=== PATIENT | female | born 1960 | race Caucasian/White ===

== ENCOUNTER → 2017-12-15 | Outpatient (CLI) | payer BC ==
[2017-12-15 14:03] LABS: BASOPHILS # (AUTO) 0.1 (0.0-0.1); EOSINOPHILS # (AUTO) 0.3 (0.0-0.4); EOSINOPHILS % 2.7 % (0.0-6.0); HEMATOCRIT 39.4 % (34.2-44.1); HEMOGLOBIN 13.1 g/dL (12.0-16.0); LYMPHOCYTES # (AUTO) 2.1 (1.0-3.2); LYMPHOCYTES % 20.9 % (18.0-39.1); MEAN CORPUSCULAR HGB CONC 33.2 g/dL (31-35); MEAN CORPUSCULAR VOLUME 99.2 fL (81-99); MONOCYTES # (AUTO) 0.8 (0.2-0.8); NEUTROPHILS # (AUTO) 6.8 (2.1-6.9); NEUTROPHILS % 67.2 % (38.7-80.0); PLATELET COUNT 331 x10e3/uL (140-360); RED BLOOD COUNT 3.97 x10e6/uL (3.6-5.1)
[2017-12-15 14:31] LABS: ALANINE AMINOTRANSFERASE 33 IU/L (0-55); ALBUMIN 2.8 g/dL (3.5-5.0); ALBUMIN/GLOBULIN RATIO 0.7 (0.8-2.0); ALKALINE PHOSPHATASE 112 IU/L (40-150); ANION GAP 13.7 mmol/L (8-16); BLOOD UREA NITROGEN 20 mg/dL (7-26); BUN/CREATININE RATIO 25 (6-25); CALCIUM 9.5 mg/dL (8.4-10.2); CARBON DIOXIDE 26 mmol/L (22-29); CHLORIDE 100 mmol/L (98-107); EST GLOMERULAR FILTRATION RATE > 60 ML/MIN (60-); GLUCOSE 140 mg/dL (74-118); POTASSIUM 3.7 mmol/L (3.5-5.1); SODIUM 136 mmol/L (136-145)
[2017-12-15 14:39] LABS: ERYTHROCYTE SEDIMENTATION RATE 28 mm/hr (0-20)
== END ==
LOC: WCC 15:23
PROVIDERS: ATTEND Podiatrist Foot & Ankle Surgery
DX: E11.621 Type 2 diabetes mellitus with foot ulcer (principal); L97.421 Non-pressure chronic ulcer of left heel and midfoot limited to breakdown of skin; L97.411 Non-pressure chronic ulcer of right heel and midfoot limited to breakdown of skin; I10 Essential (primary) hypertension; E78.5 Hyperlipidemia, unspecified; J45.909 Unspecified asthma, uncomplicated
CPT/HCPCS: 36415; 80053; 83036; 84134; 85025; 85651; 86140; 87071; 87075; 87186; 87205

== ENCOUNTER → 2017-12-20 | Outpatient (CLI) | payer BC | LOC: WCC 09:00 | PROVIDERS: ATTEND Podiatrist Foot & Ankle Surgery | DX: E11.621 Type 2 diabetes mellitus with foot ulcer (principal); L97.421 Non-pressure chronic ulcer of left heel and midfoot limited to breakdown of skin; L97.411 Non-pressure chronic ulcer of right heel and midfoot limited to breakdown of skin; I10 Essential (primary) hypertension; B95.8 Unspecified staphylococcus as the cause of diseases classified elsewhere; D50.8 Other iron deficiency anemias; E03.9 Hypothyroidism, unspecified; E78.5 Hyperlipidemia, unspecified; G43.101 Migraine with aura, not intractable, with status migrainosus; G56.00 Carpal tunnel syndrome, unspecified upper limb; G90.09 Other idiopathic peripheral autonomic neuropathy; J45.909 Unspecified asthma, uncomplicated; K21.9 Gastro-esophageal reflux disease without esophagitis; K46.9 Unspecified abdominal hernia without obstruction or gangrene; Z01.810 Encounter for preprocedural cardiovascular examination; Z01.811 Encounter for preprocedural respiratory examination ==

== ENCOUNTER → 2017-12-21 | Outpatient (CLI) | payer BC ==
--- NOTE | 2017-12-21 15:56 | Diagnostic Imaging Report ---
EXAMINATION: CHEST 2 VIEWS INDICATION: Preop clearance for hyperbaric treatment COMPARISON: None FINDINGS: PA and lateral views TUBES and LINES: 2 thoracic stimulator leads terminate in the mid thoracic spine. LUNGS: Lungs are well inflated. Azygos lobe and fissure are present. There is no evidence of pneumonia or pulmonary edema. PLEURA: No pleural effusion or pneumothorax. HEART AND MEDIASTINUM: The cardiomediastinal silhouette is unremarkable.. BONES AND SOFT TISSUES: No focal osseous lesions. Soft tissues are unremarkable. UPPER ABDOMEN: No free air under the diaphragm. Surgical clips in the upper abdomen are suggestive of cholecystectomy. IMPRESSION: No acute thoracic abnormality. Signed by: Dr. Angie Neal MD on 12/21/2017 3:53 PM
== END ==
LOC: RAD 14:19
PROVIDERS: ATTEND Family Medicine
DX: Z01.810 Encounter for preprocedural cardiovascular examination (principal); Z01.811 Encounter for preprocedural respiratory examination
CPT/HCPCS: 71046; 93005

== ENCOUNTER → 2018-01-04 | Outpatient (CLI) | payer BC | LOC: EDSEX → WCC 12:00 | PROVIDERS: ATTEND Podiatrist Foot & Ankle Surgery | DX: E10.621 Type 1 diabetes mellitus with foot ulcer (principal); E11.621 Type 2 diabetes mellitus with foot ulcer; L97.421 Non-pressure chronic ulcer of left heel and midfoot limited to breakdown of skin; L97.411 Non-pressure chronic ulcer of right heel and midfoot limited to breakdown of skin; B95.8 Unspecified staphylococcus as the cause of diseases classified elsewhere; D50.8 Other iron deficiency anemias; E03.9 Hypothyroidism, unspecified; E78.5 Hyperlipidemia, unspecified; G43.101 Migraine with aura, not intractable, with status migrainosus ==

== ENCOUNTER → 2018-01-10 | Outpatient (CLI) | payer BC | LOC: WCC 12:35 | PROVIDERS: ATTEND Podiatrist Foot & Ankle Surgery | DX: E10.621 Type 1 diabetes mellitus with foot ulcer (principal); E11.621 Type 2 diabetes mellitus with foot ulcer; L97.421 Non-pressure chronic ulcer of left heel and midfoot limited to breakdown of skin; L97.411 Non-pressure chronic ulcer of right heel and midfoot limited to breakdown of skin; I10 Essential (primary) hypertension; B95.8 Unspecified staphylococcus as the cause of diseases classified elsewhere; D50.8 Other iron deficiency anemias; E03.9 Hypothyroidism, unspecified; E78.5 Hyperlipidemia, unspecified; G43.101 Migraine with aura, not intractable, with status migrainosus; G56.00 Carpal tunnel syndrome, unspecified upper limb; G90.09 Other idiopathic peripheral autonomic neuropathy; J45.909 Unspecified asthma, uncomplicated; K21.9 Gastro-esophageal reflux disease without esophagitis; K46.9 Unspecified abdominal hernia without obstruction or gangrene; Z01.810 Encounter for preprocedural cardiovascular examination; Z01.811 Encounter for preprocedural respiratory examination ==

== ENCOUNTER → 2018-01-19 | Outpatient (CLI) | payer BC | LOC: EDSEX → WCC 12:15 | PROVIDERS: ATTEND Podiatrist Foot & Ankle Surgery | DX: E11.621 Type 2 diabetes mellitus with foot ulcer (principal); E10.621 Type 1 diabetes mellitus with foot ulcer; L97.421 Non-pressure chronic ulcer of left heel and midfoot limited to breakdown of skin; L97.411 Non-pressure chronic ulcer of right heel and midfoot limited to breakdown of skin; B95.8 Unspecified staphylococcus as the cause of diseases classified elsewhere; I10 Essential (primary) hypertension; G90.09 Other idiopathic peripheral autonomic neuropathy; D50.8 Other iron deficiency anemias; E03.9 Hypothyroidism, unspecified; E78.5 Hyperlipidemia, unspecified; G43.101 Migraine with aura, not intractable, with status migrainosus; G56.00 Carpal tunnel syndrome, unspecified upper limb; J45.909 Unspecified asthma, uncomplicated; K21.9 Gastro-esophageal reflux disease without esophagitis; K46.9 Unspecified abdominal hernia without obstruction or gangrene; Z01.810 Encounter for preprocedural cardiovascular examination; Z01.811 Encounter for preprocedural respiratory examination ==

== ENCOUNTER → 2018-01-31 | Outpatient (CLI) | payer BC ==
[~2018-01-31] MED LIST: LIDOCAINE VISC 2% SOLN 15 ML UDC ONE
== END ==
LOC: WCC 13:27
PROVIDERS: ATTEND Podiatrist Foot & Ankle Surgery
DX: E11.621 Type 2 diabetes mellitus with foot ulcer (principal); L97.421 Non-pressure chronic ulcer of left heel and midfoot limited to breakdown of skin; L97.411 Non-pressure chronic ulcer of right heel and midfoot limited to breakdown of skin; G90.09 Other idiopathic peripheral autonomic neuropathy; B95.8 Unspecified staphylococcus as the cause of diseases classified elsewhere; D50.8 Other iron deficiency anemias; E03.9 Hypothyroidism, unspecified; E78.5 Hyperlipidemia, unspecified; G43.101 Migraine with aura, not intractable, with status migrainosus; G56.00 Carpal tunnel syndrome, unspecified upper limb; I10 Essential (primary) hypertension; J45.909 Unspecified asthma, uncomplicated; K21.9 Gastro-esophageal reflux disease without esophagitis; K46.9 Unspecified abdominal hernia without obstruction or gangrene; Z01.810 Encounter for preprocedural cardiovascular examination; Z01.811 Encounter for preprocedural respiratory examination

== ENCOUNTER → 2018-02-07 | Outpatient (CLI) | payer BC | LOC: WCC 12:43 | PROVIDERS: ATTEND Podiatrist Foot & Ankle Surgery | DX: E11.621 Type 2 diabetes mellitus with foot ulcer (principal); L97.421 Non-pressure chronic ulcer of left heel and midfoot limited to breakdown of skin; L97.411 Non-pressure chronic ulcer of right heel and midfoot limited to breakdown of skin; G90.09 Other idiopathic peripheral autonomic neuropathy; B95.8 Unspecified staphylococcus as the cause of diseases classified elsewhere; E78.5 Hyperlipidemia, unspecified; D50.8 Other iron deficiency anemias; E03.9 Hypothyroidism, unspecified; G43.101 Migraine with aura, not intractable, with status migrainosus; G56.00 Carpal tunnel syndrome, unspecified upper limb ==

== ENCOUNTER → 2018-02-21 | Outpatient (CLI) | payer BC | LOC: WCC 02:00 | PROVIDERS: ATTEND Podiatrist Foot & Ankle Surgery | DX: E11.621 Type 2 diabetes mellitus with foot ulcer (principal); L97.421 Non-pressure chronic ulcer of left heel and midfoot limited to breakdown of skin; L97.411 Non-pressure chronic ulcer of right heel and midfoot limited to breakdown of skin; G90.09 Other idiopathic peripheral autonomic neuropathy; B95.8 Unspecified staphylococcus as the cause of diseases classified elsewhere; I10 Essential (primary) hypertension; D50.8 Other iron deficiency anemias; E03.9 Hypothyroidism, unspecified; E78.5 Hyperlipidemia, unspecified; G43.101 Migraine with aura, not intractable, with status migrainosus; G56.00 Carpal tunnel syndrome, unspecified upper limb; J45.909 Unspecified asthma, uncomplicated; K21.9 Gastro-esophageal reflux disease without esophagitis; K46.9 Unspecified abdominal hernia without obstruction or gangrene; Z01.810 Encounter for preprocedural cardiovascular examination; Z01.811 Encounter for preprocedural respiratory examination ==

== ENCOUNTER → 2018-03-07 | Outpatient (CLI) | payer BC | LOC: WCC 13:28 | PROVIDERS: ATTEND Podiatrist Foot & Ankle Surgery | DX: E11.621 Type 2 diabetes mellitus with foot ulcer (principal); L97.411 Non-pressure chronic ulcer of right heel and midfoot limited to breakdown of skin; B95.8 Unspecified staphylococcus as the cause of diseases classified elsewhere; D50.8 Other iron deficiency anemias; E03.9 Hypothyroidism, unspecified; E78.5 Hyperlipidemia, unspecified; G43.101 Migraine with aura, not intractable, with status migrainosus; G56.00 Carpal tunnel syndrome, unspecified upper limb; G90.09 Other idiopathic peripheral autonomic neuropathy; I10 Essential (primary) hypertension; J45.909 Unspecified asthma, uncomplicated ==

== ENCOUNTER → 2018-03-21 | Outpatient (CLI) | payer BC | LOC: WCC 13:13 | PROVIDERS: ATTEND Podiatrist Foot & Ankle Surgery | DX: E11.621 Type 2 diabetes mellitus with foot ulcer (principal); L97.411 Non-pressure chronic ulcer of right heel and midfoot limited to breakdown of skin; B95.8 Unspecified staphylococcus as the cause of diseases classified elsewhere; I10 Essential (primary) hypertension; G90.09 Other idiopathic peripheral autonomic neuropathy; D50.8 Other iron deficiency anemias; E03.9 Hypothyroidism, unspecified; E78.5 Hyperlipidemia, unspecified; G43.101 Migraine with aura, not intractable, with status migrainosus; G56.00 Carpal tunnel syndrome, unspecified upper limb; J45.909 Unspecified asthma, uncomplicated ==

== ENCOUNTER → 2018-04-25 | Outpatient (CLI) | payer BC | LOC: WCC 10:00 | PROVIDERS: ATTEND Podiatrist Foot & Ankle Surgery | DX: E11.621 Type 2 diabetes mellitus with foot ulcer (principal); L97.411 Non-pressure chronic ulcer of right heel and midfoot limited to breakdown of skin; G90.09 Other idiopathic peripheral autonomic neuropathy; I10 Essential (primary) hypertension; B95.8 Unspecified staphylococcus as the cause of diseases classified elsewhere; D50.8 Other iron deficiency anemias; E03.9 Hypothyroidism, unspecified; E78.5 Hyperlipidemia, unspecified; G43.101 Migraine with aura, not intractable, with status migrainosus; G56.00 Carpal tunnel syndrome, unspecified upper limb; J45.909 Unspecified asthma, uncomplicated ==

== ENCOUNTER → 2018-07-09 | Outpatient (CLI) | payer BC ==
[~2018-07-09] MED LIST changes: -LIDOCAINE VISC 2% SOLN 15 ML UDC ONE; +MUPIROCIN 2% OINT 22 GM TUBE ONE
== END ==
LOC: WCC 14:27
PROVIDERS: ATTEND Podiatrist Foot & Ankle Surgery
DX: E11.621 Type 2 diabetes mellitus with foot ulcer (principal); L97.411 Non-pressure chronic ulcer of right heel and midfoot limited to breakdown of skin; L97.519 Non-pressure chronic ulcer of other part of right foot with unspecified severity; G90.09 Other idiopathic peripheral autonomic neuropathy; I10 Essential (primary) hypertension; D50.8 Other iron deficiency anemias; E03.9 Hypothyroidism, unspecified; E78.5 Hyperlipidemia, unspecified; G43.101 Migraine with aura, not intractable, with status migrainosus; G56.00 Carpal tunnel syndrome, unspecified upper limb

== ENCOUNTER → 2018-08-13 | Outpatient (CLI) | payer BC ==
[~2018-08-13] MED LIST changes: +CADEXOMER IODINE 30 GM TUBE ONE; +LIDOCAINE/PRILOCAINE 2.5-2.5% KIT ONE; -MUPIROCIN 2% OINT 22 GM TUBE ONE
== END ==
LOC: WCC 14:32
PROVIDERS: ATTEND Podiatrist Foot & Ankle Surgery
DX: L60.8 Other nail disorders (principal); E11.621 Type 2 diabetes mellitus with foot ulcer; L89.892 Pressure ulcer of other site, stage 2; L97.519 Non-pressure chronic ulcer of other part of right foot with unspecified severity; I10 Essential (primary) hypertension; D50.8 Other iron deficiency anemias; E03.9 Hypothyroidism, unspecified; E78.5 Hyperlipidemia, unspecified; G43.101 Migraine with aura, not intractable, with status migrainosus; G56.00 Carpal tunnel syndrome, unspecified upper limb; G90.09 Other idiopathic peripheral autonomic neuropathy; J45.909 Unspecified asthma, uncomplicated; K21.9 Gastro-esophageal reflux disease without esophagitis; K46.9 Unspecified abdominal hernia without obstruction or gangrene; Y82.8 Other medical devices associated with adverse incidents; Z01.810 Encounter for preprocedural cardiovascular examination; Z01.811 Encounter for preprocedural respiratory examination

== ENCOUNTER → 2018-08-20 | Outpatient (CLI) | payer BC | LOC: WCC 13:50 | PROVIDERS: ATTEND Podiatrist Foot & Ankle Surgery | DX: E11.621 Type 2 diabetes mellitus with foot ulcer (principal); L89.892 Pressure ulcer of other site, stage 2; L97.519 Non-pressure chronic ulcer of other part of right foot with unspecified severity; L60.8 Other nail disorders; D50.8 Other iron deficiency anemias; E03.9 Hypothyroidism, unspecified; E78.5 Hyperlipidemia, unspecified; G43.101 Migraine with aura, not intractable, with status migrainosus; G56.00 Carpal tunnel syndrome, unspecified upper limb; G90.09 Other idiopathic peripheral autonomic neuropathy; I10 Essential (primary) hypertension; J45.909 Unspecified asthma, uncomplicated; K21.9 Gastro-esophageal reflux disease without esophagitis; K64.9 Unspecified hemorrhoids; Y82.8 Other medical devices associated with adverse incidents; Z01.810 Encounter for preprocedural cardiovascular examination; Z01.811 Encounter for preprocedural respiratory examination ==

== ENCOUNTER → 2018-08-27 | Outpatient (CLI) | payer BC ==
[~2018-08-27] MED LIST changes: -CADEXOMER IODINE 30 GM TUBE ONE
== END ==
LOC: WCC 15:05
PROVIDERS: ATTEND Podiatrist Foot & Ankle Surgery
DX: E11.621 Type 2 diabetes mellitus with foot ulcer (principal); L89.892 Pressure ulcer of other site, stage 2; L60.8 Other nail disorders; L97.519 Non-pressure chronic ulcer of other part of right foot with unspecified severity; G90.09 Other idiopathic peripheral autonomic neuropathy; I10 Essential (primary) hypertension; D50.8 Other iron deficiency anemias; E03.9 Hypothyroidism, unspecified; E78.5 Hyperlipidemia, unspecified; G43.101 Migraine with aura, not intractable, with status migrainosus; G56.00 Carpal tunnel syndrome, unspecified upper limb

== ENCOUNTER → 2018-09-03 | Outpatient (CLI) | payer BC | LOC: WCC 14:41 | PROVIDERS: ATTEND Podiatrist Foot & Ankle Surgery | DX: E11.621 Type 2 diabetes mellitus with foot ulcer (principal); L89.892 Pressure ulcer of other site, stage 2; L60.8 Other nail disorders; L97.519 Non-pressure chronic ulcer of other part of right foot with unspecified severity; G90.09 Other idiopathic peripheral autonomic neuropathy; I10 Essential (primary) hypertension; D50.8 Other iron deficiency anemias; E03.9 Hypothyroidism, unspecified; E78.5 Hyperlipidemia, unspecified; G43.101 Migraine with aura, not intractable, with status migrainosus; G56.00 Carpal tunnel syndrome, unspecified upper limb ==

== ENCOUNTER → 2018-09-10 | Outpatient (CLI) | payer BC | LOC: WCC 15:27 | PROVIDERS: ATTEND Podiatrist Foot & Ankle Surgery | DX: E11.621 Type 2 diabetes mellitus with foot ulcer (principal); L89.892 Pressure ulcer of other site, stage 2; L97.519 Non-pressure chronic ulcer of other part of right foot with unspecified severity; L60.8 Other nail disorders; I10 Essential (primary) hypertension; D50.8 Other iron deficiency anemias; E03.9 Hypothyroidism, unspecified; E78.5 Hyperlipidemia, unspecified; G43.101 Migraine with aura, not intractable, with status migrainosus; G56.00 Carpal tunnel syndrome, unspecified upper limb; G90.09 Other idiopathic peripheral autonomic neuropathy ==

== ENCOUNTER → 2018-09-24 | Outpatient (CLI) | payer BC | LOC: WCC 15:06 | PROVIDERS: ATTEND Podiatrist Foot & Ankle Surgery | DX: E11.621 Type 2 diabetes mellitus with foot ulcer (principal); L89.892 Pressure ulcer of other site, stage 2; Y82.8 Other medical devices associated with adverse incidents; L97.519 Non-pressure chronic ulcer of other part of right foot with unspecified severity; L60.8 Other nail disorders; G90.09 Other idiopathic peripheral autonomic neuropathy; I10 Essential (primary) hypertension; J45.909 Unspecified asthma, uncomplicated; E03.9 Hypothyroidism, unspecified; E78.5 Hyperlipidemia, unspecified; D50.8 Other iron deficiency anemias; G43.101 Migraine with aura, not intractable, with status migrainosus; K21.9 Gastro-esophageal reflux disease without esophagitis; K46.9 Unspecified abdominal hernia without obstruction or gangrene; G56.00 Carpal tunnel syndrome, unspecified upper limb; Z01.810 Encounter for preprocedural cardiovascular examination; Z01.811 Encounter for preprocedural respiratory examination ==

== ENCOUNTER → 2018-10-01 | Outpatient (CLI) | payer BC | LOC: WCC 13:22 | PROVIDERS: ATTEND Podiatrist Foot & Ankle Surgery | DX: L89.892 Pressure ulcer of other site, stage 2 (principal); E11.621 Type 2 diabetes mellitus with foot ulcer; Y82.8 Other medical devices associated with adverse incidents; L97.519 Non-pressure chronic ulcer of other part of right foot with unspecified severity; S90.822A Blister (nonthermal), left foot, initial encounter; G90.09 Other idiopathic peripheral autonomic neuropathy; I10 Essential (primary) hypertension; D50.8 Other iron deficiency anemias; E03.9 Hypothyroidism, unspecified; E78.5 Hyperlipidemia, unspecified; G43.101 Migraine with aura, not intractable, with status migrainosus; G56.00 Carpal tunnel syndrome, unspecified upper limb; J45.909 Unspecified asthma, uncomplicated; K21.9 Gastro-esophageal reflux disease without esophagitis; K46.9 Unspecified abdominal hernia without obstruction or gangrene; Z01.810 Encounter for preprocedural cardiovascular examination; Z01.811 Encounter for preprocedural respiratory examination | CPT/HCPCS: 87071; 87075; 87205 ==

== ENCOUNTER → 2018-10-08 | Outpatient (CLI) | payer BC | LOC: WCC 16:08 | PROVIDERS: ATTEND Podiatrist Foot & Ankle Surgery | DX: E11.621 Type 2 diabetes mellitus with foot ulcer (principal); L97.519 Non-pressure chronic ulcer of other part of right foot with unspecified severity; Y82.8 Other medical devices associated with adverse incidents; S90.822A Blister (nonthermal), left foot, initial encounter; S90.821A Blister (nonthermal), right foot, initial encounter; G90.09 Other idiopathic peripheral autonomic neuropathy; D50.8 Other iron deficiency anemias; E03.9 Hypothyroidism, unspecified; E78.5 Hyperlipidemia, unspecified; G43.101 Migraine with aura, not intractable, with status migrainosus; G56.00 Carpal tunnel syndrome, unspecified upper limb; I10 Essential (primary) hypertension; J45.909 Unspecified asthma, uncomplicated; K21.9 Gastro-esophageal reflux disease without esophagitis; K46.9 Unspecified abdominal hernia without obstruction or gangrene; Z01.810 Encounter for preprocedural cardiovascular examination; Z01.811 Encounter for preprocedural respiratory examination ==

== ENCOUNTER → 2018-10-15 | Outpatient (CLI) | payer BC | LOC: WCC 15:17 | PROVIDERS: ATTEND Podiatrist Foot & Ankle Surgery | DX: E11.621 Type 2 diabetes mellitus with foot ulcer (principal); Y82.8 Other medical devices associated with adverse incidents; L97.519 Non-pressure chronic ulcer of other part of right foot with unspecified severity; S90.822A Blister (nonthermal), left foot, initial encounter; S90.821A Blister (nonthermal), right foot, initial encounter; G90.09 Other idiopathic peripheral autonomic neuropathy; I10 Essential (primary) hypertension; D50.8 Other iron deficiency anemias; E03.9 Hypothyroidism, unspecified; E78.5 Hyperlipidemia, unspecified; G43.101 Migraine with aura, not intractable, with status migrainosus; G56.00 Carpal tunnel syndrome, unspecified upper limb; J45.909 Unspecified asthma, uncomplicated; K21.9 Gastro-esophageal reflux disease without esophagitis; K46.9 Unspecified abdominal hernia without obstruction or gangrene; Z01.810 Encounter for preprocedural cardiovascular examination; Z01.811 Encounter for preprocedural respiratory examination | CPT/HCPCS: 87071; 87075; 87205 ==

== ENCOUNTER → 2018-10-22 | Outpatient (CLI) | payer BC | LOC: WCC 14:41 | PROVIDERS: ATTEND Podiatrist Foot & Ankle Surgery | DX: E11.621 Type 2 diabetes mellitus with foot ulcer (principal); Y82.8 Other medical devices associated with adverse incidents; L97.519 Non-pressure chronic ulcer of other part of right foot with unspecified severity; S90.822A Blister (nonthermal), left foot, initial encounter; S90.821A Blister (nonthermal), right foot, initial encounter; I10 Essential (primary) hypertension; G90.09 Other idiopathic peripheral autonomic neuropathy; D50.8 Other iron deficiency anemias; E03.9 Hypothyroidism, unspecified; E78.5 Hyperlipidemia, unspecified; G43.101 Migraine with aura, not intractable, with status migrainosus; G56.00 Carpal tunnel syndrome, unspecified upper limb; J45.909 Unspecified asthma, uncomplicated; K21.9 Gastro-esophageal reflux disease without esophagitis; K46.9 Unspecified abdominal hernia without obstruction or gangrene; Z01.810 Encounter for preprocedural cardiovascular examination; Z01.811 Encounter for preprocedural respiratory examination ==

== ENCOUNTER → 2018-10-29 | Outpatient (CLI) | payer BC | LOC: WCC 14:51 | PROVIDERS: ATTEND Podiatrist Foot & Ankle Surgery | DX: E11.621 Type 2 diabetes mellitus with foot ulcer (principal); L97.519 Non-pressure chronic ulcer of other part of right foot with unspecified severity; S90.822A Blister (nonthermal), left foot, initial encounter; S90.821A Blister (nonthermal), right foot, initial encounter; D50.8 Other iron deficiency anemias; E03.9 Hypothyroidism, unspecified; E78.5 Hyperlipidemia, unspecified; G43.101 Migraine with aura, not intractable, with status migrainosus; G56.00 Carpal tunnel syndrome, unspecified upper limb ==

== ENCOUNTER → 2018-11-19 | Outpatient (CLI) | payer BC | LOC: WCC 15:15 | PROVIDERS: ATTEND Podiatrist Foot & Ankle Surgery | DX: T81.89XS Other complications of procedures, not elsewhere classified, sequela (principal); E11.621 Type 2 diabetes mellitus with foot ulcer; L97.519 Non-pressure chronic ulcer of other part of right foot with unspecified severity; G90.09 Other idiopathic peripheral autonomic neuropathy; D50.8 Other iron deficiency anemias; E03.9 Hypothyroidism, unspecified; E78.5 Hyperlipidemia, unspecified; G43.101 Migraine with aura, not intractable, with status migrainosus; G56.00 Carpal tunnel syndrome, unspecified upper limb ==

== ENCOUNTER → 2018-11-26 | Outpatient (CLI) | payer BC | LOC: WCC 14:09 | PROVIDERS: ATTEND Podiatrist Foot & Ankle Surgery | DX: T81.89XS Other complications of procedures, not elsewhere classified, sequela (principal); Y82.8 Other medical devices associated with adverse incidents; E11.621 Type 2 diabetes mellitus with foot ulcer; L89.891 Pressure ulcer of other site, stage 1; L97.519 Non-pressure chronic ulcer of other part of right foot with unspecified severity; M65.071 Abscess of tendon sheath, right ankle and foot; I10 Essential (primary) hypertension; D50.8 Other iron deficiency anemias; E03.9 Hypothyroidism, unspecified; E78.5 Hyperlipidemia, unspecified; G43.101 Migraine with aura, not intractable, with status migrainosus; G56.00 Carpal tunnel syndrome, unspecified upper limb; G90.09 Other idiopathic peripheral autonomic neuropathy; J45.909 Unspecified asthma, uncomplicated; K21.9 Gastro-esophageal reflux disease without esophagitis; K46.9 Unspecified abdominal hernia without obstruction or gangrene; Z01.810 Encounter for preprocedural cardiovascular examination; Z01.811 Encounter for preprocedural respiratory examination; Z74.01 Bed confinement status ==

== ENCOUNTER → 2018-12-17 | Outpatient (CLI) | payer BC | LOC: WCC 14:25 | PROVIDERS: ATTEND Podiatrist Foot & Ankle Surgery | DX: T81.89XS Other complications of procedures, not elsewhere classified, sequela (principal); Y82.8 Other medical devices associated with adverse incidents; L89.891 Pressure ulcer of other site, stage 1; E11.621 Type 2 diabetes mellitus with foot ulcer; M86.071 Acute hematogenous osteomyelitis, right ankle and foot; L97.519 Non-pressure chronic ulcer of other part of right foot with unspecified severity; D50.8 Other iron deficiency anemias; E03.9 Hypothyroidism, unspecified; E78.5 Hyperlipidemia, unspecified; G43.101 Migraine with aura, not intractable, with status migrainosus; G56.00 Carpal tunnel syndrome, unspecified upper limb; G90.09 Other idiopathic peripheral autonomic neuropathy; I10 Essential (primary) hypertension; J45.909 Unspecified asthma, uncomplicated; K21.9 Gastro-esophageal reflux disease without esophagitis; K46.9 Unspecified abdominal hernia without obstruction or gangrene; Z01.810 Encounter for preprocedural cardiovascular examination; Z01.811 Encounter for preprocedural respiratory examination; Z74.01 Bed confinement status | CPT/HCPCS: 87071; 87075; 87186; 87205 ==